=== PATIENT | male | born 1970 | race Caucasian/White ===

== ENCOUNTER 2016-09-14 03:27 | Emergency (ER) | payer BC ==
[2016-09-14] MEDS ORDERED: ACETAMINOPHEN TAB 650MG DOSE (2X325MG) As Ordered ONE (05:30)
[2016-09-14 05:58] LABS: BASO # 0.1 K/mm3 (0.0-0.2); BASO % 1.7 % (0.0-1.0); EOS # 0.1 K/mm3 (0.0-0.50); LARGE UNSTAINED CELL # 0.1 K/mm3 (0.0-0.4); LARGE UNSTAINED CELL % 1.8 % (0.0-4.0); LYMPH # 0.8 K/mm3 (1.5-4.5); LYMPH % 9.9 % (24.0-44.0); MEAN CORPUSCULAR HEMOGLOBIN 31.3 pg (27.0-33.0); MEAN CORPUSCULAR HGB CONC 36.1 g/dl (32.0-36.5); MEAN CORPUSCULAR VOLUME 86.8 fl (80.0-96.0); MONO # 0.6 K/mm3 (0.0-0.8); MONO % 9.6 % (0.0-5.0); NEUTROPHILS # 4.9 K/mm3 (1.8-7.7); NEUTROPHILS % 76.1 % (36.0-66.0); PLATELET COUNT, AUTOMATED 162 k/mm3 (150-450); RED CELL DISTRIBUTION WIDTH 13.8 % (11.5-14.5); WHITE BLOOD COUNT 6.5 K/mm3 (4.0-10.0)
[2016-09-14 06:18] LABS: ANION GAP 8 MEQ/L (8-16); BLOOD UREA NITROGEN 11 MG/DL (7-18); CALCIUM LEVEL 8.6 MG/DL (8.5-10.1); CARBON DIOXIDE LEVEL 26 MEQ/L (21-32); CHLORIDE LEVEL 104 MEQ/L (98-107); CREATININE FOR GFR 1.14 MG/DL (0.70-1.30); GLOMERULAR FILTRATION RATE > 60.0 (>60); GLUCOSE, FASTING 127 MG/DL (70-105); POTASSIUM SERUM 3.9 MEQ/L (3.5-5.1); SODIUM LEVEL 138 MEQ/L (136-145)
[2016-09-14] MEDS ORDERED: ISOVUE-370 76% 100ML VIAL (Q9967) As Ordered ONE (07:47)
--- NOTE | 2016-09-14 08:06 | REP ---
Clinical: acute cough . Comparison: 02/05/2016 . Technique: PA and lateral. Findings: The mediastinum and cardiac silhouette are normal. The lung spencer are clear and without acute consolidation, effusion, or pneumothorax. The skeletal structures are intact and normal. Impression: 1. No acute cardiopulmonary process. Signed by Marcus Su MD 09/14/2016 07:57 A
[2016-09-14] MEDS ORDERED: KETOROLAC 30 MG/ML VIAL (J1885) As Ordered ONE (08:11)
--- NOTE | 2016-09-14 08:16 | REP ---
Clinical: Acute chest pain. Technique: Axial contrast enhanced images from the thoracic inlet to the upper abdomen using 100 ml Isovue 370 intravenous contrast material with coronal and sagittal re-formations. Findings: Satisfactory enhancement of the pulmonary vasculature is achieved and no filling defects are identified to suggest pulmonary embolus. Trace right basilar atelectasis is suggested. No nodule or mass lesion. No pleural effusion/reaction. No pneumothorax. No adenopathy. Thoracic aorta is normal caliber without aneurysm or dissection. Heart and pericardium are normal. Impression: No evidence for pulmonary embolus. Trace right basilar atelectasis suggested. Signed by Marcus Su MD 09/14/2016 08:08 A
--- NOTE | 2016-09-14 10:50 | EDDOCDS ---
Nurse's Notes [facility] Name: Calvin Sims Age: 46 yrs Sex: Male : 1970 Arrival Date: 09/14/2016 Time: 03:27 Bed 17 Private MD: Diagnosis: Influenza due to identified novel influenza A virus Presentation: 09/14 03:31 Presenting complaint: Patient states: he has had URI symptoms and running fevers which cz he cant get under control at home with tylenol. pt states he was on antibiotic for white spots on tonsils which resloved but now has returned. pt states history of pneumonia one year ago. Adult Sepsis Screening: The patient does not have new or worsening altered mentation. Patient's respiratory rate is less than 22. Systolic blood pressure is greater than 100. Patient has a qSOFA score of 0- Negative Sepsis Screen. Suicide/Homicide risk assessment- the patient denies having any suicidal and/or homicidal ideations and does not present with any other emotional, behavioral or mental health complaints. Status: Patient is not a customer service security officer or dependent. Transition of care: patient was not received from another setting of care. 03:31 Acuity: DEVAUGHN Level 3 cz 03:31 Method Of Arrival: Walkin/Carried/Asstd cz Triage Assessment: 03:38 General: Appears uncomfortable. Pain: Location: face Pain currently is 7 out of 10 on a cz pain scale. HIV screening NA for this visit Offered previously. 06:21 Respiratory: Onset: The symptoms/episode began/occurred gradually. ko2 Historical: - Allergies: No known drug Allergies; - Home Meds: 1. amlodipine 5 mg Oral tab 2. atorvastatin 10 mg oral tab 1 tab once daily 3. losartan 100 mg oral tab 1 tab once daily 4. omeprazole 40 mg Oral cpDR 1 cap once daily 5. metformin 500 mg Oral Tb24 1 tab once daily - PMHx: Diabetes - NIDDM: controlled; Hypertension; hyperlipidemia; - PSHx: Cholecystectomy; Appendectomy; Hernia repair; - Social history: Smoking status: Patient states was never smoker of tobacco. No barriers to communication noted, The patient speaks fluent Mongolian, Speaks appropriately for age. - Family history: Not pertinent, No immediate family members are acutely ill. - : The pt / caregiver states he / she is not on anticoagulants. Home medication list is obtained from the patient. - Exposure Risk Screening:: None identified. Screenin:20 Screening information is obtained from the patient. Fall risk: No risks identified. ko2 Assistance ADL's: requires no assistance with activities of daily living. Abuse/DV Screen: The patient / caregiver reports he/she is: not in a situation that causes fear, pain or injury. Nutritional screening: No deficits noted. Advance Directives: Currently, there is no health care proxy. There is no active DNR order. There is no living will. There is no Power of Reheater Helper. home support is adequate. Assessment: 05:26 General: Appears in no apparent distress, Behavior is cooperative. Pain: Denies pain. mlc Neurological: Level of Consciousness is awake, alert, Oriented to person, place, time. EENT: Throat has patchy exudate. Cardiovascular: Capillary refill < 3 seconds Heart tones S1 S2 present. Cardiovascular: Chest pain is denied. Respiratory: Airway is patent Respiratory effort is even, unlabored, Respiratory pattern is regular, Breath sounds are clear bilaterally. Reports shortness of breath cough that is non-productive. Derm: Skin is pink, warm & dry. Skin temperature is warm. 06:19 General: Appears in no apparent distress, Behavior is appropriate for age, cooperative. ko2 Pain: Denies pain. Neurological: Level of Consciousness is awake, alert, Oriented to person, place, time. Cardiovascular: Heart tones S1 S2 present. Respiratory: Airway is patent Respiratory effort is even, unlabored, Respiratory pattern is regular. Derm: Skin is pink, warm & dry. 07:07 General: Appears in no apparent distress, Behavior is appropriate for age, cooperative. pml Pain: Location: body aches. Neurological: Level of Consciousness is awake, alert, Oriented to person, place, time. Cardiovascular: Capillary refill < 3 seconds. Respiratory: Airway is patent Respiratory effort is even, unlabored. Derm: Skin is pink, warm & dry. 08:13 General: Pt reports body aches, 7/10 - medicated as indicated on emar. pml 10:12 General: Appears in no apparent distress, comfortable, Behavior is appropriate for age, js13 cooperative. Pain: Location: body aches Pain currently is 4 out of 10 on a pain scale. Neurological: Level of Consciousness is awake, alert. Cardiovascular: Chest pain is denied. Respiratory: Airway is patent Respiratory effort is even, unlabored, Respiratory pattern is regular, symmetrical. Derm: Skin is pink, warm & dry. Vital Signs: 03:38 BP 152 / 82; Pulse 103; Resp 16; Temp 101.4(O); Pulse Ox 96% on R/A; Weight 117.93 kg; cz Height 6 ft. (182.88 cm); 07:07 Temp 100.3; pml 08:28 Pain 5/10; pml 10:14 Pain 4/10; js13 10:48 BP 116 / 66; Pulse 60; Resp 16; Temp 98.3(O); Pain 0/10; kr3 03:38 Body Mass Index 35.26 (117.93 kg, 182.88 cm) cz Vitals: 03:38 Log In Time: September 14, 2016 at 03:27. cz 05:52 Strep Screen is obtained and tested: Negative, a GATSNEG culture is ordered in [facility] and sent. ED Course: 03:28 Patient visited by Shantell Kohli. gjb 03:28 Patient moved to Waiting gjb 03:36 Triage Initiated cz 03:42 Patient moved to Pre RCE cz 05:03 Patient moved to Jul 05:11 Patient visited by Jerod Feliciano PCA. kb5 05:52 Gianna Boyer,RN is Primary Nurse. jul 05:52 Patient moved to 17 jul 05:52 The patient / caregiver is instructed regarding the plan of care and ED course. mlc 05:52 GATS (NEGATIVE STREP SCREEN) Sent. mlc 05:52 -Influenza A&B Rapid Antigen - Nose Sent. mlc 05:52 BMP Sent. mlc 05:52 CBC with Diff Sent. mlc 05:52 Inserted saline lock: 18 gauge in right antecubital area and blood collected. The [facility] [place] patient tolerated the procedure well. 05:53 Patient visited by Ariana Ash RN. mlc 05:56 BLOOD CULTURES Sent. jerome 06:19 Patient visited by Gianna Boyer,TINY. ko2 06:49 [facility] [place] was scanned into [employer] and attached to record. pm4 07:04 Arlene Bragg MD is Attending Physician. fg 07:04 Patient visited by Arlene Bragg MD. fg 07:07 Patient has correct armband on for positive identification. Placed in gown. Bed in low pml position. Call light in reach. Side rails up X2. 07:08 Patient visited by Emilie Pinedo RN. pml 07:44 Patient visited by Tahira Moy PCA. jlf 08:14 Patient visited by Emilie Pinedo RN. pml 08:39 Chest, 2 View (pa\E\lat) Returned. EDMS 08:39 CT Chest Angio R/O PE Returned. EDMS 09:05 RESPIRATORY PANEL Sent. pml 10:13 Patient visited by Soni Barr RN. js13 10:23 Jean Carlos Somers is Referral Physician. fg 10:47 Discontinued lock intact, bleeding controlled, pressure dressing applied, No kr3 redness/swelling at site. No procedures done that require assistance. Administered Medications: 05:29 Not Given (Patient Refused): Ibuprofen 800 mg PO once jul 05:52 Drug: NS 0.9% 1000 ml [sodium chloride 0.9 % intravenous solution] Route: IV; Rate: mlc bolus; Site: right antecubital; 05:52 Drug: Acetaminophen 650 mg [acetaminophen 325 mg tablet (2 tabs)] Route: PO; mlc 07:10 Follow up: Response: Temperature is decreased pml 08:14 Drug: ketorolac 15 mg [ketorolac 30 mg/mL (1 mL) injection solution (0.5 mL)] Route: [facility] IVP; Site: right antecubital; 08:28 Follow up: Pain 5/10 Adult; Response: Pain is decreased pml 10:14 Follow up: Pain 4/10 Adult; Response: Pain is decreased js13 Order Results: Lab Order: CBC with Diff; SPEC'M 09/14/16 05:45 Test: WHITE BLOOD COUNT; Value: 6.5; Range: 4.0-10.0; Units: K/mm3; Status: F Test: RED BLOOD COUNT; Value: 5.47; Range: 4.30-6.10; Units: M/mm3; Status: F Test: HEMOGLOBIN; Value: 17.1; Range: 14.0-18.0; Units: g/dl; Status: F Test: HEMATOCRIT; Value: 47.5; Range: 42.0-52.0; Units: %; Status: F Test: MEAN CORPUSCULAR VOLUME; Value: 86.8; Range: 80.0-96.0; Units: fl; Status: F Test: MEAN CORPUSCULAR HEMOGLOBIN; Value: 31.3; Range: 27.0-33.0; Units: pg; Status: F Test: MEAN CORPUSCULAR HGB CONC; Value: 36.1; Range: 32.0-36.5; Units: g/dl; Status: F Test: RED CELL DISTRIBUTION WIDTH; Value: 13.8; Range: 11.5-14.5; Units: %; Status: F Test: PLATELET COUNT, AUTOMATED; Value: 162; Range: 150-450; Units: k/mm3; Status: F Test: NEUTROPHILS %; Value: 76.1; Range: 36.0-66.0; Abnormal: Above high normal; Units: %; Status: F Test: LYMPH %; Value: 9.9; Range: 24.0-44.0; Abnormal: Below low normal; Units: %; Status: F Test: MONO %; Value: 9.6; Range: 0.0-5.0; Abnormal: Above high normal; Units: %; Status: F Test: EOS %; Value: 1.0; Range: 0.0-3.0; Units: %; Status: F Test: BASO %; Value: 1.7; Range: 0.0-1.0; Abnormal: Above high normal; Units: %; Status: F Test: LARGE UNSTAINED CELL %; Value: 1.8; Range: 0.0-4.0; Units: %; Status: F Test: NEUTROPHILS #; Value: 4.9; Range: 1.8-7.7; Units: K/mm3; Status: F Test: LYMPH #; Value: 0.8; Range: 1.5-4.5; Abnormal: Below low normal; Units: K/mm3; Status: F Test: MONO #; Value: 0.6; Range: 0.0-0.8; Units: K/mm3; Status: F Test: EOS #; Value: 0.1; Range: 0.0-0.50; Units: K/mm3; Status: F Test: BASO #; Value: 0.1; Range: 0.0-0.2; Units: K/mm3; Status: F Test: LARGE UNSTAINED CELL #; Value: 0.1; Range: 0.0-0.4; Units: K/mm3; Status: F Lab Order: BMP; SPEC'M 09/14/16 05:45 Test: GLUCOSE, FASTING; Value: 127; Range: 70-105; Abnormal: Above high normal; Units: MG/DL; Status: F Test: BLOOD UREA NITROGEN; Value: 11; Range: 7-18; Units: MG/DL; Status: F Test: CREATININE FOR GFR; Value: 1.14; Range: 0.70-1.30; Units: MG/DL; Status: F Test: GLOMERULAR FILTRATION RATE; Value: > 60.0; Range: >60; Status: F Test: SODIUM LEVEL; Value: 138; Range: 136-145; Units: MEQ/L; Status: F Test: POTASSIUM SERUM; Value: 3.9; Range: 3.5-5.1; Units: MEQ/L; Status: F Test: CHLORIDE LEVEL; Value: 104; Range: 98-107; Units: MEQ/L; Status: F Test: CARBON DIOXIDE LEVEL; Value: 26; Range: 21-32; Units: MEQ/L; Status: F Test: ANION GAP; Value: 8; Range: 8-16; Units: MEQ/L; Status: F Test: CALCIUM LEVEL; Value: 8.6; Range: 8.5-10.1; Units: MG/DL; Status: F Test Note: ; Units are mL/min/1.73 m2 Chronic Kidney Disease Staging per NKF: Stage I & II GFR >=60 Normal to Mildly Decreased Stage III GFR 30-59 Moderately Decreased Stage IV GFR 15-29 Severely Decreased Stage V GFR <15 Very Little GFR Left ESRD GFR <15 on SUPERVIS[employer] Lab Order: -Influenza A&B Rapid Antigen - Nose; SPEC'M 09/14/16 05:45 Test: INFLUENZA A RAPID SCR by ICA; Value: INFLUENZA A RESULTS NEGATIVE; Status: F Test: INFLUENZA A RAPID SCR by ICA; Value: Comments:; Status: F Test: INFLUENZA B RAPID SCR by ICA; Value: INFLUENZA B RESULTS NEGATIVE; Status: F Test Note: ; The Influenza test is a direct rapid immunoassay for the qualitative detection of Influenza viral antigen. Cell culture (Viral Culture) testing should be considered to confirm NEGATIVE results and to assist in detecting other viruses that can provide similar clinical symptoms. Please contact the lab within 24 hours ([phone]) if confirmatory testing is desired. Lab Order: RESPIRATORY PANEL; SPEC'M 09/14/16 05:45 Test: RESPIRATORY PANEL; Value: RP PANEL RESULT POSITIVE by PCR; Abnormal: Abnormal; Status: F Test: RESPIRATORY PANEL; Value: Comments:; Status: F Test: RESPIRATORY PANEL; Value: ORGANISM 1: INFLUENZA A H3; Status: F Test: RESPIRATORY PANEL; Value: INFLUENZA A H3; Status: F Test: RESPIRATORY PANEL; Value: Influenza H3 1 Influenza causes upper respiratory tract infections; Status: F Test: RESPIRATORY PANEL; Value: Influenza H3 10 Influenza A1H3.; Status: F Test: RESPIRATORY PANEL; Value: Influenza H3 2 with rapid onset of fever. During annual Influenza; Status: F Test: RESPIRATORY PANEL; Value: Influenza H3 3 epidemics, 5-20% of the population is affected.; Status: F Test: RESPIRATORY PANEL; Value: Influenza H3 4 Complications with viral or bacterial pneumonia; Status: F Test: RESPIRATORY PANEL; Value: Influenza H3 5 increase mortality from Influenza infections. There; Status: F Test: RESPIRATORY PANEL; Value: Influenza H3 6 are currently at least four antiviral medications; Status: F Test: RESPIRATORY PANEL; Value: Influenza H3 7 available for Influenza treatment (amantadine,; Status: F Test: RESPIRATORY PANEL; Value: Influenza H3 8 rimantadine, zanamivir and oseltamivir). More severe; Status: F Test: RESPIRATORY PANEL; Value: Influenza H3 9 disease and increased mortality are associated with; Status: F Test Note: ; This respiratory PCR panel detects Influenza A H1, H3 and 2009 H1 viruses, Influenza B virus, Respiratory syncytial virus, Human metapneumovirus, Parainfluenza virus 1, 2, 3 and 4, Adenovirus, Rhinovirus/Enterovirus, Coronavirus HKU1, NL63, OC43 and 229E, Bordetella pertussis, Mycoplasma pneumoniae and Chlamydia pneumoniae. Radiology Order: Chest, 2 View (pa\E\lat) Test: Chest, 2 View (pa\E\lat) REASON FOR EXAMINATION: Cough;Chest Pain; Clinical: acute cough .; ; Comparison: 02/05/2016 .; ; Technique: PA and lateral.; ; Findings:; The mediastinum and cardiac silhouette are normal. The lung spencer are clear and; without acute consolidation, effusion, or pneumothorax. The skeletal structures; are intact and normal.; ; Impression:; 1. No acute cardiopulmonary process.; ; ; Signed by; Marcus Su MD 09/14/2016 07:57 A; Radiology Order: CT Chest Angio R/O PE Test: CT Chest Angio R/O PE REASON FOR EXAMINATION: Chest Pain;Cough; Clinical: Acute chest pain.; ; Technique: Axial contrast enhanced images from the thoracic inlet to the upper; abdomen using 100 ml Isovue 370 intravenous contrast material with coronal and; sagittal re-formations.; ; Findings: Satisfactory enhancement of the pulmonary vasculature is achieved and; no filling defects are identified to suggest pulmonary embolus. Trace right; basilar atelectasis is suggested. No nodule or mass lesion. No pleural; effusion/reaction. No pneumothorax. No adenopathy. Thoracic aorta is normal; caliber without aneurysm or dissection. Heart and pericardium are normal.; ; Impression:; No evidence for pulmonary embolus.; Trace right basilar atelectasis suggested.; ; ; Signed by; Marcus Su MD 09/14/2016 08:08 A; Outcome: 10:25 Discharge ordered by Provider. fg 10:47 CT Study completed. kr3 10:49 Discharge Assessment: patient administered narcotics - no. The following High Risk kr3 Discharge criteria are identified: None. Discharged to home ambulatory. Condition: stable. Discharge instructions given to patient, Instructed on discharge instructions, follow up and referral plans. Demonstrated understanding of instructions, Pt was receptive of discharge instructions/ teaching. Property sent home with patient. 10:49 Patient left the ED. kr3 Signatures: Dispatcher [employer] EDMS Gypsy Pa RN RN jan Zecher, Calvin, RN RN cz Robie, Kathleen, RN RN kr3 Bancroft, Kristopher, RIVERINE ASSAULT CRAFT CREWMAN RIVERINE ASSAULT CRAFT CREWMAN kb5 Sayra Pierce, RIVERINE ASSAULT CRAFT CREWMAN RIVERINE ASSAULT CRAFT CREWMAN Emilie Hamilton,RN Soni DeyRN RN grant13 Tahira Moy, RIVERINE ASSAULT CRAFT CREWMAN RIVERINE ASSAULT CRAFT CREWMAN Ariana Ashraf RN RN mlc Ogden, Kari, RN RN Arlene Perez MD MD fg Beck, Gabriela gjb Montondo, Paul, Reg Reg pm4 MTDD
--- NOTE | 2016-09-14 10:50 | EDDOCDS ---
Physician Documentation [facility] Name: Calvin Sims Age: 46 yrs Sex: Male : 1970 Arrival Date: 09/14/2016 Time: 03:27 Bed 17 Private MD: Disposition: 09/14/16 10:25 Discharged to Home/Self Care. Impression: Influenza due to identified novel influenza A virus. - Condition is Stable. - Discharge Instructions: Influenza Adult. - Medication Reconciliation, Local Pharmacy Hours form. - Follow up: Jean Carlos Somers; When: Call to arrange an appointment; Reason: Continuance of care. - Problem is new. - Symptoms have improved. Historical: - Allergies: No known drug Allergies; - Home Meds: 1. amlodipine 5 mg Oral tab 2. atorvastatin 10 mg oral tab 1 tab once daily 3. losartan 100 mg oral tab 1 tab once daily 4. omeprazole 40 mg Oral cpDR 1 cap once daily 5. metformin 500 mg Oral Tb24 1 tab once daily - PMHx: Diabetes - NIDDM: controlled; Hypertension; hyperlipidemia; - PSHx: Cholecystectomy; Appendectomy; Hernia repair; - Social history: Smoking status: Patient states was never smoker of tobacco. No barriers to communication noted, The patient speaks fluent Turkish, Speaks appropriately for age. - Family history: Not pertinent, No immediate family members are acutely ill. - : The pt / caregiver states he / she is not on anticoagulants. Home medication list is obtained from the patient. - Exposure Risk Screening:: None identified. Vital Signs: 09/14 03:38 BP 152 / 82; Pulse 103; Resp 16; Temp 101.4(O); Pulse Ox 96% on R/A; Weight 117.93 kg / cz 259.99 lbs; Height 6 ft. (182.88 cm); 07:07 Temp 100.3; pml 08:28 Pain 5/10; pml 10:14 Pain 4/10; js13 10:48 BP 116 / 66; Pulse 60; Resp 16; Temp 98.3(O); Pain 0/10; kr3 03:38 Body Mass Index 35.26 (117.93 kg, 182.88 cm) cz MDM: 05:25 IV Saline Lock ordered. mm11 05:25 Strep Screen, Nursing ordered. mm11 05:25 Ibuprofen 800 mg PO once ordered. mm11 05:25 NS 0.9% 1000 ml IV at bolus once ordered. mm11 05:25 -Blood Culture (Adults Only), peripheral from different site, or from device/port/PICC mm11 etc. if present ordered. 05:26 CBC with Diff Ordered. EDMS 05:26 BMP Ordered. EDMS 05:26 -Influenza A&B Rapid Antigen - Nose Ordered. EDMS 05:27 -Blood Culture Ordered. EDMS 05:29 Acetaminophen Tablet 650 mg PO once ordered. mm11 05:29 -Blood Culture (Adults Only), peripheral from different site, or from device/port/PICC ml3 etc. if present complete. 05:31 BLOOD CULTURES Ordered. EDMS 05:51 GATS (NEGATIVE STREP SCREEN) Ordered. EDMS 06:49 [facility] Payment Agreement was scanned into [employer] and attached to record. pm4 07:06 Financial registration complete. pm4 07:40 ketorolac 15 mg IVP once ordered. fg 07:41 Chest, 2 View (pa\E\lat) Ordered. EDMS 07:41 CT Chest Angio R/O PE Ordered. EDMS 07:41 Misc Retail Area Manager Order ordered. fg 07:45 Misc Retail Area Manager Order complete. ar3 08:12 RESPIRATORY PANEL Ordered. EDMS Administered Medications: 05:29 Not Given (Patient Refused): Ibuprofen 800 mg PO once jul 05:52 Drug: NS 0.9% 1000 ml [sodium chloride 0.9 % intravenous solution] Route: IV; Rate: mlc bolus; Site: right antecubital; 05:52 Drug: Acetaminophen 650 mg [acetaminophen 325 mg tablet (2 tabs)] Route: PO; mlc 07:10 Follow up: Response: Temperature is decreased pml 08:14 Drug: ketorolac 15 mg [ketorolac 30 mg/mL (1 mL) injection solution (0.5 mL)] Route: pml IVP; Site: right antecubital; 08:28 Follow up: Pain 5/10 Adult; Response: Pain is decreased pml 10:14 Follow up: Pain 4/10 Adult; Response: Pain is decreased js13 Signatures: Dispatcher [employer] EDMS Devaughn Bueno RN RN cz Lopresti, Mary-Elizabeth, Jd [employer] Consultant [employer] ml3 Kristine Solitario RN RN kr3 Kayode Alcaraz, DO DO mm11 Nathalie Reyes, IT ENGINEER IT ENGINEER ar3 Ariana Ash,RN RN mlc Arlene Bragg MD MD Kvng Marroquin, Reg Reg pm4 Gypsy Pa RN, Paulina RN pml Sullivan, Jennifer RN js13 The chart was reviewed and I authenticate all verbal orders and agree with the evaluation and treatment provided.Corrections: (The following items were deleted from the chart) 08:12 07:46 RESPIRATORY PANEL ordered. EDMS EDMS Attachments: 06:49 [facility] [place] Payment Agreement pm4 MTDD
--- NOTE | 2016-09-16 11:50 | EDDOCDS ---
Physician Documentation [facility] Name: Calvin Sims Age: 46 yrs Sex: Male : 1970 Arrival Date: 09/14/2016 Time: 03:27 Bed 17 Private MD: Disposition: 09/14/16 10:25 Discharged to Home/Self Care. Impression: Influenza due to identified novel influenza A virus. - Condition is Stable. - Discharge Instructions: Influenza Adult. - Medication Reconciliation, Local Pharmacy Hours form. - Follow up: Jean Carlos Somers; When: Call to arrange an appointment; Reason: Continuance of care. - Problem is new. - Symptoms have improved. Historical: - Allergies: No known drug Allergies; - Home Meds: 1. amlodipine 5 mg Oral tab 2. atorvastatin 10 mg oral tab 1 tab once daily 3. losartan 100 mg oral tab 1 tab once daily 4. omeprazole 40 mg Oral cpDR 1 cap once daily 5. metformin 500 mg Oral Tb24 1 tab once daily - PMHx: Diabetes - NIDDM: controlled; Hypertension; hyperlipidemia; - PSHx: Cholecystectomy; Appendectomy; Hernia repair; - Social history: Smoking status: Patient states was never smoker of tobacco. No barriers to communication noted, The patient speaks fluent Latvian, Speaks appropriately for age. - Family history: Not pertinent, No immediate family members are acutely ill. - : The pt / caregiver states he / she is not on anticoagulants. Home medication list is obtained from the patient. - Exposure Risk Screening:: None identified. Vital Signs: 09/14 03:38 BP 152 / 82; Pulse 103; Resp 16; Temp 101.4(O); Pulse Ox 96% on R/A; Weight 117.93 kg / cz 259.99 lbs; Height 6 ft. (182.88 cm); 07:07 Temp 100.3; pml 08:28 Pain 5/10; pml 10:14 Pain 4/10; js13 10:48 BP 116 / 66; Pulse 60; Resp 16; Temp 98.3(O); Pain 0/10; kr3 03:38 Body Mass Index 35.26 (117.93 kg, 182.88 cm) cz MDM: 05:25 IV Saline Lock ordered. mm11 05:25 Strep Screen, Nursing ordered. mm11 05:25 Ibuprofen 800 mg PO once ordered. mm11 05:25 NS 0.9% 1000 ml IV at bolus once ordered. mm11 05:25 -Blood Culture (Adults Only), peripheral from different site, or from device/port/PICC mm11 etc. if present ordered. 05:26 CBC with Diff Ordered. EDMS 05:26 BMP Ordered. EDMS 05:26 -Influenza A&B Rapid Antigen - Nose Ordered. EDMS 05:27 -Blood Culture Ordered. EDMS 05:29 Acetaminophen Tablet 650 mg PO once ordered. mm11 05:29 -Blood Culture (Adults Only), peripheral from different site, or from device/port/PICC ml3 etc. if present complete. 05:31 BLOOD CULTURES Ordered. EDMS 05:51 GATS (NEGATIVE STREP SCREEN) Ordered. EDMS 06:49 [facility] Payment Agreement was scanned into OPENLANE and attached to record. pm4 07:06 Financial registration complete. pm4 07:40 ketorolac 15 mg IVP once ordered. fg 07:41 Chest, 2 View (pa\E\lat) Ordered. EDMS 07:41 CT Chest Angio R/O PE Ordered. EDMS 07:41 Misc Chief Creative Officer Order ordered. fg 07:45 Misc Chief Creative Officer Order complete. ar3 08:12 RESPIRATORY PANEL Ordered. EDMS 17:23 T-Sheet-- Draft Copy was scanned into OPENLANE and attached to record. klr Administered Medications: 05:29 Not Given (Patient Refused): Ibuprofen 800 mg PO once jul 05:52 Drug: NS 0.9% 1000 ml [sodium chloride 0.9 % intravenous solution] Route: IV; Rate: mlc bolus; Site: right antecubital; 05:52 Drug: Acetaminophen 650 mg [acetaminophen 325 mg tablet (2 tabs)] Route: PO; mlc 07:10 Follow up: Response: Temperature is decreased pml 08:14 Drug: ketorolac 15 mg [ketorolac 30 mg/mL (1 mL) injection solution (0.5 mL)] Route: pml IVP; Site: right antecubital; 08:28 Follow up: Pain 5/10 Adult; Response: Pain is decreased pml 10:14 Follow up: Pain 4/10 Adult; Response: Pain is decreased js13 Signatures: Dispatcher MedHost EDMS Devaughn Bueno RN RN Juanpablo Gifford, Automatic Nailing Machine Feeder Unit ml3 Kristine Solitario,RN RN kr3 Kayode Alcaraz, DO mm11 Nathalie Reyes, LABOR TRAINER LABOR TRAINER ar3 Ariana Ash,RN RN Arlene Palomares MD MD fg Redder, Kathie klr Montondo, Paul, Reg Reg pm4 Gypsy Pa RN, Paulina RN pml Sullivan, Jennifer RN js13 The chart was reviewed and I authenticate all verbal orders and agree with the evaluation and treatment provided.Corrections: (The following items were deleted from the chart) 08:12 07:46 RESPIRATORY PANEL ordered. EDMS EDMS Attachments: 06:49 MD-EM Payment Agreement pm4 17:23 T-Sheet-- Draft Copy klr Chart Complete MTDD
--- NOTE | 2016-09-16 11:50 | EDDOCDS ---
Nurse's Notes [facility] Name: Calvin Sims Age: 46 yrs Sex: Male : 1970 Arrival Date: 09/14/2016 Time: 03:27 Bed 17 Private MD: Diagnosis: Influenza due to identified novel influenza A virus Presentation: 09/14 03:31 Presenting complaint: Patient states: he has had URI symptoms and running fevers which cz he cant get under control at home with tylenol. pt states he was on antibiotic for white spots on tonsils which resloved but now has returned. pt states history of pneumonia one year ago. Adult Sepsis Screening: The patient does not have new or worsening altered mentation. Patient's respiratory rate is less than 22. Systolic blood pressure is greater than 100. Patient has a qSOFA score of 0- Negative Sepsis Screen. Suicide/Homicide risk assessment- the patient denies having any suicidal and/or homicidal ideations and does not present with any other emotional, behavioral or mental health complaints. Status: Patient is not a health services rn or dependent. Transition of care: patient was not received from another setting of care. 03:31 Acuity: DEVAUGHN Level 3 cz 03:31 Method Of Arrival: Walkin/Carried/Asstd cz Triage Assessment: 03:38 General: Appears uncomfortable. Pain: Location: face Pain currently is 7 out of 10 on a cz pain scale. HIV screening NA for this visit Offered previously. 06:21 Respiratory: Onset: The symptoms/episode began/occurred gradually. ko2 Historical: - Allergies: No known drug Allergies; - Home Meds: 1. amlodipine 5 mg Oral tab 2. atorvastatin 10 mg oral tab 1 tab once daily 3. losartan 100 mg oral tab 1 tab once daily 4. omeprazole 40 mg Oral cpDR 1 cap once daily 5. metformin 500 mg Oral Tb24 1 tab once daily - PMHx: Diabetes - NIDDM: controlled; Hypertension; hyperlipidemia; - PSHx: Cholecystectomy; Appendectomy; Hernia repair; - Social history: Smoking status: Patient states was never smoker of tobacco. No barriers to communication noted, The patient speaks fluent Guamanian, Speaks appropriately for age. - Family history: Not pertinent, No immediate family members are acutely ill. - : The pt / caregiver states he / she is not on anticoagulants. Home medication list is obtained from the patient. - Exposure Risk Screening:: None identified. Screenin:20 Screening information is obtained from the patient. Fall risk: No risks identified. ko2 Assistance ADL's: requires no assistance with activities of daily living. Abuse/DV Screen: The patient / caregiver reports he/she is: not in a situation that causes fear, pain or injury. Nutritional screening: No deficits noted. Advance Directives: Currently, there is no health care proxy. There is no active DNR order. There is no living will. There is no Power of Pharmaceutical Analyst. home support is adequate. Assessment: 05:26 General: Appears in no apparent distress, Behavior is cooperative. Pain: Denies pain. mlc Neurological: Level of Consciousness is awake, alert, Oriented to person, place, time. EENT: Throat has patchy exudate. Cardiovascular: Capillary refill < 3 seconds Heart tones S1 S2 present. Cardiovascular: Chest pain is denied. Respiratory: Airway is patent Respiratory effort is even, unlabored, Respiratory pattern is regular, Breath sounds are clear bilaterally. Reports shortness of breath cough that is non-productive. Derm: Skin is pink, warm & dry. Skin temperature is warm. 06:19 General: Appears in no apparent distress, Behavior is appropriate for age, cooperative. ko2 Pain: Denies pain. Neurological: Level of Consciousness is awake, alert, Oriented to person, place, time. Cardiovascular: Heart tones S1 S2 present. Respiratory: Airway is patent Respiratory effort is even, unlabored, Respiratory pattern is regular. Derm: Skin is pink, warm & dry. 07:07 General: Appears in no apparent distress, Behavior is appropriate for age, cooperative. pml Pain: Location: body aches. Neurological: Level of Consciousness is awake, alert, Oriented to person, place, time. Cardiovascular: Capillary refill < 3 seconds. Respiratory: Airway is patent Respiratory effort is even, unlabored. Derm: Skin is pink, warm & dry. 08:13 General: Pt reports body aches, 7/10 - medicated as indicated on emar. pml 10:12 General: Appears in no apparent distress, comfortable, Behavior is appropriate for age, js13 cooperative. Pain: Location: body aches Pain currently is 4 out of 10 on a pain scale. Neurological: Level of Consciousness is awake, alert. Cardiovascular: Chest pain is denied. Respiratory: Airway is patent Respiratory effort is even, unlabored, Respiratory pattern is regular, symmetrical. Derm: Skin is pink, warm & dry. Vital Signs: 03:38 BP 152 / 82; Pulse 103; Resp 16; Temp 101.4(O); Pulse Ox 96% on R/A; Weight 117.93 kg; cz Height 6 ft. (182.88 cm); 07:07 Temp 100.3; pml 08:28 Pain 5/10; pml 10:14 Pain 4/10; js13 10:48 BP 116 / 66; Pulse 60; Resp 16; Temp 98.3(O); Pain 0/10; kr3 03:38 Body Mass Index 35.26 (117.93 kg, 182.88 cm) cz Vitals: 03:38 Log In Time: September 14, 2016 at 03:27. cz 05:52 Strep Screen is obtained and tested: Negative, a GATSNEG culture is ordered in [facility] and sent. ED Course: 03:28 Patient visited by Shantell Kohli. gjb 03:28 Patient moved to Waiting gjb 03:36 Triage Initiated cz 03:42 Patient moved to Pre RCE cz 05:03 Patient moved to Jul 05:11 Patient visited by Jerod Feliciano PCA. kb5 05:52 Gianna Boyer,RN is Primary Nurse. jul 05:52 Patient moved to 17 jul 05:52 The patient / caregiver is instructed regarding the plan of care and ED course. mlc 05:52 GATS (NEGATIVE STREP SCREEN) Sent. mlc 05:52 -Influenza A&B Rapid Antigen - Nose Sent. mlc 05:52 BMP Sent. mlc 05:52 CBC with Diff Sent. mlc 05:52 Inserted saline lock: 18 gauge in right antecubital area and blood collected. The [facility] patient tolerated the procedure well. 05:53 Patient visited by Ariana Ash RN. mlc 05:56 BLOOD CULTURES Sent. jerome 06:19 Patient visited by Gianna Boyer,TINY. ko2 06:49 [facility] Payment Agreement was scanned into Swift Identity and attached to record. pm4 07:04 Arlene Bragg MD is Attending Physician. fg 07:04 Patient visited by Arlene Bragg MD. fg 07:07 Patient has correct armband on for positive identification. Placed in gown. Bed in low pml position. Call light in reach. Side rails up X2. 07:08 Patient visited by Emilie Pinedo RN. pml 07:44 Patient visited by Tahira Moy PCA. jlf 08:14 Patient visited by Emilie Pinedo RN. pml 08:39 Chest, 2 View (pa\E\lat) Returned. EDMS 08:39 CT Chest Angio R/O PE Returned. EDMS 09:05 RESPIRATORY PANEL Sent. pml 10:13 Patient visited by Soni Barr RN. js13 10:23 Jean Carlos Somers is Referral Physician. fg 10:47 Discontinued lock intact, bleeding controlled, pressure dressing applied, No kr3 redness/swelling at site. No procedures done that require assistance. 17:23 T-Sheet-- Draft Copy was scanned into Swift Identity and attached to record. klr Administered Medications: 05:29 Not Given (Patient Refused): Ibuprofen 800 mg PO once jul 05:52 Drug: NS 0.9% 1000 ml [sodium chloride 0.9 % intravenous solution] Route: IV; Rate: mlc bolus; Site: right antecubital; 05:52 Drug: Acetaminophen 650 mg [acetaminophen 325 mg tablet (2 tabs)] Route: PO; mlc 07:10 Follow up: Response: Temperature is decreased pml 08:14 Drug: ketorolac 15 mg [ketorolac 30 mg/mL (1 mL) injection solution (0.5 mL)] Route: pml IVP; Site: right antecubital; 08:28 Follow up: Pain 5/10 Adult; Response: Pain is decreased pml 10:14 Follow up: Pain 4/10 Adult; Response: Pain is decreased js13 Order Results: Lab Order: CBC with Diff; SPEC'M 09/14/16 05:45 Test: WHITE BLOOD COUNT; Value: 6.5; Range: 4.0-10.0; Units: K/mm3; Status: F Test: RED BLOOD COUNT; Value: 5.47; Range: 4.30-6.10; Units: M/mm3; Status: F Test: HEMOGLOBIN; Value: 17.1; Range: 14.0-18.0; Units: g/dl; Status: F Test: HEMATOCRIT; Value: 47.5; Range: 42.0-52.0; Units: %; Status: F Test: MEAN CORPUSCULAR VOLUME; Value: 86.8; Range: 80.0-96.0; Units: fl; Status: F Test: MEAN CORPUSCULAR HEMOGLOBIN; Value: 31.3; Range: 27.0-33.0; Units: pg; Status: F Test: MEAN CORPUSCULAR HGB CONC; Value: 36.1; Range: 32.0-36.5; Units: g/dl; Status: F Test: RED CELL DISTRIBUTION WIDTH; Value: 13.8; Range: 11.5-14.5; Units: %; Status: F Test: PLATELET COUNT, AUTOMATED; Value: 162; Range: 150-450; Units: k/mm3; Status: F Test: NEUTROPHILS %; Value: 76.1; Range: 36.0-66.0; Abnormal: Above high normal; Units: %; Status: F Test: LYMPH %; Value: 9.9; Range: 24.0-44.0; Abnormal: Below low normal; Units: %; Status: F Test: MONO %; Value: 9.6; Range: 0.0-5.0; Abnormal: Above high normal; Units: %; Status: F Test: EOS %; Value: 1.0; Range: 0.0-3.0; Units: %; Status: F Test: BASO %; Value: 1.7; Range: 0.0-1.0; Abnormal: Above high normal; Units: %; Status: F Test: LARGE UNSTAINED CELL %; Value: 1.8; Range: 0.0-4.0; Units: %; Status: F Test: NEUTROPHILS #; Value: 4.9; Range: 1.8-7.7; Units: K/mm3; Status: F Test: LYMPH #; Value: 0.8; Range: 1.5-4.5; Abnormal: Below low normal; Units: K/mm3; Status: F Test: MONO #; Value: 0.6; Range: 0.0-0.8; Units: K/mm3; Status: F Test: EOS #; Value: 0.1; Range: 0.0-0.50; Units: K/mm3; Status: F Test: BASO #; Value: 0.1; Range: 0.0-0.2; Units: K/mm3; Status: F Test: LARGE UNSTAINED CELL #; Value: 0.1; Range: 0.0-0.4; Units: K/mm3; Status: F Lab Order: BMP; SPEC'M 09/14/16 05:45 Test: GLUCOSE, FASTING; Value: 127; Range: 70-105; Abnormal: Above high normal; Units: MG/DL; Status: F Test: BLOOD UREA NITROGEN; Value: 11; Range: 7-18; Units: MG/DL; Status: F Test: CREATININE FOR GFR; Value: 1.14; Range: 0.70-1.30; Units: MG/DL; Status: F Test: GLOMERULAR FILTRATION RATE; Value: > 60.0; Range: >60; Status: F Test: SODIUM LEVEL; Value: 138; Range: 136-145; Units: MEQ/L; Status: F Test: POTASSIUM SERUM; Value: 3.9; Range: 3.5-5.1; Units: MEQ/L; Status: F Test: CHLORIDE LEVEL; Value: 104; Range: 98-107; Units: MEQ/L; Status: F Test: CARBON DIOXIDE LEVEL; Value: 26; Range: 21-32; Units: MEQ/L; Status: F Test: ANION GAP; Value: 8; Range: 8-16; Units: MEQ/L; Status: F Test: CALCIUM LEVEL; Value: 8.6; Range: 8.5-10.1; Units: MG/DL; Status: F Test Note: ; Units are mL/min/1.73 m2 Chronic Kidney Disease Staging per NKF: Stage I & II GFR >=60 Normal to Mildly Decreased Stage III GFR 30-59 Moderately Decreased Stage IV GFR 15-29 Severely Decreased Stage V GFR <15 Very Little GFR Left ESRD GFR <15 on COLLECTION SYSTEMS TECHNICIAN Lab Order: -Influenza A&B Rapid Antigen - Nose; SPEC'M 09/14/16 05:45 Test: INFLUENZA A RAPID SCR by ICA; Value: INFLUENZA A RESULTS NEGATIVE; Status: F Test: INFLUENZA A RAPID SCR by ICA; Value: Comments:; Status: F Test: INFLUENZA B RAPID SCR by ICA; Value: INFLUENZA B RESULTS NEGATIVE; Status: F Test Note: ; The Influenza test is a direct rapid immunoassay for the qualitative detection of Influenza viral antigen. Cell culture (Viral Culture) testing should be considered to confirm NEGATIVE results and to assist in detecting other viruses that can provide similar clinical symptoms. Please contact the lab within 24 hours ([phone]) if confirmatory testing is desired. Lab Order: -Blood Culture; SPEC'M 09/14/16 05:45 Test: BLOOD CULTURE; Value: No growth after 24 hours . All specimens observed; Status: F Test: BLOOD CULTURE; Value: for 5 days. Results final at that time.; Status: F Test: BLOOD CULTURE; Value: No Growth after 48 hours. All Specimens observed; Status: F Test: BLOOD CULTURE; Value: for 7 days. Results final at that time.; Status: F Lab Order: BLOOD CULTURES; SPEC'M 09/14/16 05:50 Test: BLOOD CULTURE; Value: No growth after 24 hours . All specimens observed; Status: F Test: BLOOD CULTURE; Value: for 5 days. Results final at that time.; Status: F Test: BLOOD CULTURE; Value: No Growth after 48 hours. All Specimens observed; Status: F Test: BLOOD CULTURE; Value: for 7 days. Results final at that time.; Status: F Lab Order: GATS (NEGATIVE STREP SCREEN); SPEC'M 09/14/16 05:50 Test: GATS CULTURE (NEG STREP SCR); Value: GATS RESULT NEGATIVE FOR STREP PYOGENES (GROUP A); Status: F Test: GATS CULTURE (NEG STREP SCR); Value: <EXTERNAL COMMENT eCWMed> FULL REPORT IN LAB NOTES (eCW and Medent).; Status: F Lab Order: RESPIRATORY PANEL; SPEC'M 09/14/16 05:45 Test: RESPIRATORY PANEL; Value: RP PANEL RESULT POSITIVE by PCR; Abnormal: Abnormal; Status: F Test: RESPIRATORY PANEL; Value: Comments:; Status: F Test: RESPIRATORY PANEL; Value: ORGANISM 1: INFLUENZA A H3; Status: F Test: RESPIRATORY PANEL; Value: INFLUENZA A H3; Status: F Test: RESPIRATORY PANEL; Value: Influenza H3 1 Influenza causes upper respiratory tract infections; Status: F Test: RESPIRATORY PANEL; Value: Influenza H3 10 Influenza A1H3.; Status: F Test: RESPIRATORY PANEL; Value: Influenza H3 2 with rapid onset of fever. During annual Influenza; Status: F Test: RESPIRATORY PANEL; Value: Influenza H3 3 epidemics, 5-20% of the population is affected.; Status: F Test: RESPIRATORY PANEL; Value: Influenza H3 4 Complications with viral or bacterial pneumonia; Status: F Test: RESPIRATORY PANEL; Value: Influenza H3 5 increase mortality from Influenza infections. There; Status: F Test: RESPIRATORY PANEL; Value: Influenza H3 6 are currently at least four antiviral medications; Status: F Test: RESPIRATORY PANEL; Value: Influenza H3 7 available for Influenza treatment (amantadine,; Status: F Test: RESPIRATORY PANEL; Value: Influenza H3 8 rimantadine, zanamivir and oseltamivir). More severe; Status: F Test: RESPIRATORY PANEL; Value: Influenza H3 9 disease and increased mortality are associated with; Status: F Test Note: ; This respiratory PCR panel detects Influenza A H1, H3 and 2009 H1 viruses, Influenza B virus, Respiratory syncytial virus, Human metapneumovirus, Parainfluenza virus 1, 2, 3 and 4, Adenovirus, Rhinovirus/Enterovirus, Coronavirus HKU1, NL63, OC43 and 229E, Bordetella pertussis, Mycoplasma pneumoniae and Chlamydia pneumoniae. Radiology Order: Chest, 2 View (pa\E\lat) Test: Chest, 2 View (pa\E\lat) REASON FOR EXAMINATION: Cough;Chest Pain; Clinical: acute cough .; ; Comparison: 02/05/2016 .; ; Technique: PA and lateral.; ; Findings:; The mediastinum and cardiac silhouette are normal. The lung spencer are clear and; without acute consolidation, effusion, or pneumothorax. The skeletal structures; are intact and normal.; ; Impression:; 1. No acute cardiopulmonary process.; ; ; Signed by; Marcus Su MD 09/14/2016 07:57 A; Radiology Order: CT Chest Angio R/O PE Test: CT Chest Angio R/O PE REASON FOR EXAMINATION: Chest Pain;Cough; Clinical: Acute chest pain.; ; Technique: Axial contrast enhanced images from the thoracic inlet to the upper; abdomen using 100 ml Isovue 370 intravenous contrast material with coronal and; sagittal re-formations.; ; Findings: Satisfactory enhancement of the pulmonary vasculature is achieved and; no filling defects are identified to suggest pulmonary embolus. Trace right; basilar atelectasis is suggested. No nodule or mass lesion. No pleural; effusion/reaction. No pneumothorax. No adenopathy. Thoracic aorta is normal; caliber without aneurysm or dissection. Heart and pericardium are normal.; ; Impression:; No evidence for pulmonary embolus.; Trace right basilar atelectasis suggested.; ; ; Signed by; Marcus Su MD 09/14/2016 08:08 A; Outcome: 10:25 Discharge ordered by Provider. fg 10:47 CT Study completed. kr3 10:49 Discharge Assessment: patient administered narcotics - no. The following High Risk kr3 Discharge criteria are identified: None. Discharged to home ambulatory. Condition: stable. Discharge instructions given to patient, Instructed on discharge instructions, follow up and referral plans. Demonstrated understanding of instructions, Pt was receptive of discharge instructions/ teaching. Property sent home with patient. 10:49 Patient left the ED. kr3 Signatures: Dispatcher [employer] EDMS Gypsy Pa, RN RN Devaughn Resendiz, RN RN Kristine Workman,RN RN [email or web address] Jerod Feliciano, OEM SALES MANAGER OEM SALES MANAGER kb5 Sayra Pierce, OEM SALES MANAGER OEM SALES MANAGER jerome Emilie Pinedo,RN RN Soni Scott,RN RN js13 Tahira Moy, OEM SALES MANAGER OEM SALES MANAGER jlf Ariana Ash,RN RN Gianna FoyRN RN ko2 Arlene Bragg MD MD fg Beck, Gabriela gjb Redder, Kathie klr Montondo, Paul, Reg Reg pm4 Chart Complete MTDHalina
--- NOTE | 2016-09-16 11:50 | EDDOCDS ---
Physician Documentation [facility] Name: Calvin Sims Age: 46 yrs Sex: Male : 1970 Arrival Date: 09/14/2016 Time: 03:27 Bed 17 Private MD: Disposition: 09/14/16 10:25 Discharged to Home/Self Care. Impression: Influenza due to identified novel influenza A virus. - Condition is Stable. - Discharge Instructions: Influenza Adult. - Medication Reconciliation, Local Pharmacy Hours form. - Follow up: Jean Carlos Somers; When: Call to arrange an appointment; Reason: Continuance of care. - Problem is new. - Symptoms have improved. Historical: - Allergies: No known drug Allergies; - Home Meds: 1. amlodipine 5 mg Oral tab 2. atorvastatin 10 mg oral tab 1 tab once daily 3. losartan 100 mg oral tab 1 tab once daily 4. omeprazole 40 mg Oral cpDR 1 cap once daily 5. metformin 500 mg Oral Tb24 1 tab once daily - PMHx: Diabetes - NIDDM: controlled; Hypertension; hyperlipidemia; - PSHx: Cholecystectomy; Appendectomy; Hernia repair; - Social history: Smoking status: Patient states was never smoker of tobacco. No barriers to communication noted, The patient speaks fluent Romansh, Speaks appropriately for age. - Family history: Not pertinent, No immediate family members are acutely ill. - : The pt / caregiver states he / she is not on anticoagulants. Home medication list is obtained from the patient. - Exposure Risk Screening:: None identified. Vital Signs: 09/14 03:38 BP 152 / 82; Pulse 103; Resp 16; Temp 101.4(O); Pulse Ox 96% on R/A; Weight 117.93 kg / cz 259.99 lbs; Height 6 ft. (182.88 cm); 07:07 Temp 100.3; pml 08:28 Pain 5/10; pml 10:14 Pain 4/10; js13 10:48 BP 116 / 66; Pulse 60; Resp 16; Temp 98.3(O); Pain 0/10; kr3 03:38 Body Mass Index 35.26 (117.93 kg, 182.88 cm) cz MDM: 05:25 IV Saline Lock ordered. mm11 05:25 Strep Screen, Nursing ordered. mm11 05:25 Ibuprofen 800 mg PO once ordered. mm11 05:25 NS 0.9% 1000 ml IV at bolus once ordered. mm11 05:25 -Blood Culture (Adults Only), peripheral from different site, or from device/port/PICC mm11 etc. if present ordered. 05:26 CBC with Diff Ordered. EDMS 05:26 BMP Ordered. EDMS 05:26 -Influenza A&B Rapid Antigen - Nose Ordered. EDMS 05:27 -Blood Culture Ordered. EDMS 05:29 Acetaminophen Tablet 650 mg PO once ordered. mm11 05:29 -Blood Culture (Adults Only), peripheral from different site, or from device/port/PICC ml3 etc. if present complete. 05:31 BLOOD CULTURES Ordered. EDMS 05:51 GATS (NEGATIVE STREP SCREEN) Ordered. EDMS 06:49 [facility] Payment Agreement was scanned into [employer] and attached to record. pm4 07:06 Financial registration complete. pm4 07:40 ketorolac 15 mg IVP once ordered. fg 07:41 Chest, 2 View (pa\E\lat) Ordered. EDMS 07:41 CT Chest Angio R/O PE Ordered. EDMS 07:41 Misc Production Consultant Order ordered. fg 07:45 Misc Production Consultant Order complete. ar3 08:12 RESPIRATORY PANEL Ordered. EDMS 17:23 T-Sheet-- Draft Copy was scanned into [employer] and attached to record. klr Administered Medications: 05:29 Not Given (Patient Refused): Ibuprofen 800 mg PO once jul 05:52 Drug: NS 0.9% 1000 ml [sodium chloride 0.9 % intravenous solution] Route: IV; Rate: mlc bolus; Site: right antecubital; 05:52 Drug: Acetaminophen 650 mg [acetaminophen 325 mg tablet (2 tabs)] Route: PO; mlc 07:10 Follow up: Response: Temperature is decreased pml 08:14 Drug: ketorolac 15 mg [ketorolac 30 mg/mL (1 mL) injection solution (0.5 mL)] Route: pml IVP; Site: right antecubital; 08:28 Follow up: Pain 5/10 Adult; Response: Pain is decreased pml 10:14 Follow up: Pain 4/10 Adult; Response: Pain is decreased js13 Signatures: Dispatcher [employer] EDMS Devaughn Bueno RN RN Juanpablo Gifford, Director Of Software Development Unit ml3 Kristine Solitario,RN RN kr3 Kayode Alcaraz, DO mm11 Nathalie Reyes, SALES CONTRACTOR SALES CONTRACTOR ar3 Ariana Ash,RN RN Arlene Palomares MD MD fg Redder, Kathie klr Montondo, Paul, Reg Reg pm4 Gypsy Pa RN, Paulina RN pml Sullivan, Jennifer RN js13 The chart was reviewed and I authenticate all verbal orders and agree with the evaluation and treatment provided.Corrections: (The following items were deleted from the chart) 08:12 07:46 RESPIRATORY PANEL ordered. EDMS EDMS Attachments: 06:49 [facility] Payment Agreement pm4 17:23 T-Sheet-- Draft Copy klr Chart Complete MTDD
== END 2016-09-14 10:49 | disposition home or self-care (01) ==
LOC: M ED 03:27
DX: J11.1 Influenza due to unidentified influenza virus with other respiratory manifestations (principal); I10 Essential (primary) hypertension; E11.9 Type 2 diabetes mellitus without complications; E78.5 Hyperlipidemia, unspecified; Z79.899 Other long term (current) drug therapy; Z79.84 Long term (current) use of oral hypoglycemic drugs
CPT/HCPCS: 36415; 71020; 71275; 80048; 85025; 87040; 87486; 87581; 87633; 87798; 87804; 87880; 96374; 99284; J1885; Q9967

== ENCOUNTER → 2017-01-15 | Day surgery (SDC) | payer BC ==
[~2017-01-15] VITALS: Ht 182.9 cm; Wt 113.4 kg
[~2017-01-15] MED LIST: AMLO5TAB2 PO; ATOR1TAB19 PO; BUPIVACAINE/EPIN 0.5% 30 ML VIAL As Ordered ONE; HYDROmorphone HCL 2 MG/ML 1ML VIAL (J1170) As Ordered ONE; LABETALOL HCL 100 MG/20 ML VIAL As Ordered ONE; LIDOCAINE 2% INJ 100 MG/5 ML SDV (FOR ANES.) As Ordered ONE; LIDOCAINE W/EPINEPHRINE 1% 20ML VIAL As Ordered ONE; LOSA100T36 PO; LR 1,000 ML IV ONE; LR 1,000 ML IV SCH; METF500T PO; METOCLOPRAMIDE INJ 10MG/2ML VIAL (J2765) As Ordered ONE; METOCLOPRAMIDE INJ 10MG/2ML VIAL (J2765) IV PRN; MIDAZOLAM INJ 2 MG/2 ML VIAL (J2250) As Ordered ONE; MORPHINE 10 MG/ML 1ML VIAL IV PRN; OMEP20CA3 PO; ONDANSETRON 4MG/2ML VIAL (J2405) As Ordered ONE; PERCOCET 5MG/325MG TAB PO PRN; PROPOFOL 200 MG/20 ML VIAL As Ordered ONE; dexameTHASONE 4 MG/ML 1ML VIAL (J1100) As Ordered ONE; fentaNYL 100 MCG/2 ML INJECTION (J3010) As Ordered ONE; fentaNYL 100 MCG/2 ML INJECTION (J3010) IV PRN
[2017-01-15] MEDS: ONDANSETRON 4MG/2ML VIAL (J2405) IV PRN ×2 (16:15→16:52)
[2017-01-15 19:04] VITALS: BP 118/68
--- NOTE | 2017-01-16 07:26 | RO ---
DATE OF PROCEDURE: 01/15/2017 PREPROCEDURE DIAGNOSIS: Chronic tonsillitis. POSTPROCEDURE DIAGNOSIS: Chronic tonsillitis. PROCEDURE: Tonsillectomy. SURGEON: Dr. Rebel Gallagher CHLORINE CELL TENDER: ANESTHESIA: ESTIMATED BLOOD LOSS: DESCRIPTION OF OPERATION: Under general anesthesia with the patient intubated, Fernandez-Baron mouth gag was inserted, the tonsil area was infiltrated with lidocaine and epinephrine and Marcaine. Using a Coblator with setting of 6 and 4, the tonsil was dissected free from its bed on both sides. The base and apex and other areas were cauterized with a setting of 4 on the Coblator. Minimal blood loss. The patient tolerated the procedure well. A nasogastric tube was passed to suction air from the esophagus. The patient was extubated and transferred to the recovery room in excellent condition.
== END | disposition home or self-care (01) ==
LOC: M SDC 10:55
PROVIDERS: ATTEND Otolaryngology
DX: J35.01 Chronic tonsillitis (principal); K21.9 Gastro-esophageal reflux disease without esophagitis; I10 Essential (primary) hypertension; E78.00 Pure hypercholesterolemia, unspecified; E11.9 Type 2 diabetes mellitus without complications; G47.33 Obstructive sleep apnea (adult) (pediatric); E78.5 Hyperlipidemia, unspecified; M25.50 Pain in unspecified joint; R06.83 Snoring; Z79.899 Other long term (current) drug therapy; Z79.84 Long term (current) use of oral hypoglycemic drugs; Z87.01 Personal history of pneumonia (recurrent)
CPT/HCPCS: 42826; 88302; J1100; J1170; J2250; J2405; J2765; J3010

== ENCOUNTER → 2020-06-25 | Outpatient (CLI) | payer BC ==
[~2020-06-25] MED LIST changes: +AMLO1TAB24 PO; -AMLO5TAB2 PO; -BUPIVACAINE/EPIN 0.5% 30 ML VIAL As Ordered ONE; -HYDROmorphone HCL 2 MG/ML 1ML VIAL (J1170) As Ordered ONE; -LABETALOL HCL 100 MG/20 ML VIAL As Ordered ONE; -LIDOCAINE 2% INJ 100 MG/5 ML SDV (FOR ANES.) As Ordered ONE; -LIDOCAINE W/EPINEPHRINE 1% 20ML VIAL As Ordered ONE; -LOSA100T36 PO; +LOSA100T50 PO; -LR 1,000 ML IV ONE; -LR 1,000 ML IV SCH; -METF500T PO; +METF500T13 PO; -METOCLOPRAMIDE INJ 10MG/2ML VIAL (J2765) As Ordered ONE; -METOCLOPRAMIDE INJ 10MG/2ML VIAL (J2765) IV PRN; -MIDAZOLAM INJ 2 MG/2 ML VIAL (J2250) As Ordered ONE; -MORPHINE 10 MG/ML 1ML VIAL IV PRN; +OMEP1CAP73 PO; -OMEP20CA3 PO; -ONDANSETRON 4MG/2ML VIAL (J2405) As Ordered ONE; -PERCOCET 5MG/325MG TAB PO PRN; -PROPOFOL 200 MG/20 ML VIAL As Ordered ONE; -dexameTHASONE 4 MG/ML 1ML VIAL (J1100) As Ordered ONE; -fentaNYL 100 MCG/2 ML INJECTION (J3010) As Ordered ONE; -fentaNYL 100 MCG/2 ML INJECTION (J3010) IV PRN
--- NOTE | 2020-06-25 09:18 | REP ---
INDICATION: ABNORMAL RESULTS OF LIVER FUNCTION STUDIES COMPARISON: None. TECHNIQUE: Real time butcher scale ultrasound examination using curved array transducer. FINDINGS: Liver is hyperechoic and consistent with fatty infiltration. No focal hepatic lesion identified. Evidence for prior cholecystectomy. No biliary ductal dilatation is appreciated and the common bile duct measures 5.8 mm diameter. The pancreas is incompletely evaluated due to interposed bowel gas but visualized portions appear normal. Right kidney is normal in reniform shape without hydronephrosis and measures 12.1 x 5.6 x 5.7 cm. No ascites in the visualized right upper quadrant. IMPRESSION: Hepatosteatosis. <Electronically signed by Marcus Su > 06/25/20 0919
== END ==
LOC: M RAD 08:34
PROVIDERS: ATTEND Nurse Practitioner
DX: R94.5 Abnormal results of liver function studies (principal); R19.7 Diarrhea, unspecified; K21.9 Gastro-esophageal reflux disease without esophagitis; A04.9 Bacterial intestinal infection, unspecified

== ENCOUNTER 2022-02-08 08:29 | Emergency (ER) | payer BC ==
[~2022-02-08] VITALS: Ht 182.9 cm; Wt 108.8 kg
[~2022-02-08 08:29] MED LIST changes: +LOSA100T45 PO; -LOSA100T50 PO
[2022-02-08 08:31] VITALS: BP 184/111
[2022-02-08] MEDS ORDERED: HYOS0.374 (08:54)
[2022-02-08] MEDS ORDERED: MESA1.2T (08:54)
[2022-02-08] MEDS ORDERED: VANC250C3 (08:54)
== END 2022-02-08 11:04 | disposition left against medical advice (07) ==
LOC: M ED 08:29
DX: Z53.21 Procedure and treatment not carried out due to patient leaving prior to being seen by health care provider (principal)

== ENCOUNTER → 2022-05-27 | Outpatient (CLI) | payer BC ==
[~2022-05-27] MED LIST changes: +HYOS0.374; +MESA1.2T; +VANC250C3
== END ==
LOC: M WHC 07:36
PROVIDERS: ATTEND Internal Medicine
DX: N45.2 Orchitis (principal)

== ENCOUNTER 2022-12-11 23:03 | Emergency (ER) | payer BC ==
[~2022-12-11] VITALS: Ht 182.9 cm; Wt 102.8 kg
[~2022-12-11 23:03] MED LIST changes: -LOSA100T45 PO; +LOSA100T46 PO
[2022-12-11] MEDS ORDERED: FARX1TAB3 (23:15)
[2022-12-11] MEDS ORDERED: LOSA50TA28 PO (23:15)
[2022-12-11] MEDS ORDERED: ASPI81TA26 PO (23:15)
[2022-12-11] MEDS ORDERED: METF850T4 (23:15)
[2022-12-11] MEDS ORDERED: TAMS1CAP17 (23:15)
[2022-12-11] MEDS ORDERED: ROSU10TA6 (23:15)
[2022-12-11 23:35] LABS: BASO % 0.3 % (0.0-1.0); EOS # 0.1 10^3/uL (0.0-0.5); EOS % 1.1 % (0.0-3.0); HEMATOCRIT 53.2 % (42.0-52.0); HEMOGLOBIN 18.8 g/dl (13.5-17.5); LYMPH # 1.2 10^3/uL (1.5-5.0); LYMPH % 13.4 % (24.0-44.0); MEAN CORPUSCULAR HEMOGLOBIN 31.8 pg (27.0-33.0); MEAN CORPUSCULAR HGB CONC 35.3 g/dl (32.0-36.5); MONO # 0.8 10^3/uL (0.0-0.8); MONO % 9.1 % (2.0-8.0); NEUTROPHILS # 6.9 10^3/uL (1.5-8.5); NEUTROPHILS % 75.7 % (36.0-66.0); PLATELET COUNT, AUTOMATED 151 10^3/uL (150-450); RED BLOOD COUNT 5.91 10^6/uL (4.30-6.10); WHITE BLOOD COUNT 9.1 10^3/uL (4.0-10.0)
[2022-12-12 00:11] LABS: BLOOD UREA NITROGEN 17 MG/DL (9-23); CALCIUM LEVEL 9.2 MG/DL (8.5-10.1); CARBON DIOXIDE LEVEL 22 MMOL/L (20-31); CHLORIDE LEVEL 103 MMOL/L (98-107); CREATININE FOR GFR 0.86 MG/DL (0.70-1.30); GLOMERULAR FILTRATION RATE > 60.0 (>56); GLUCOSE, FASTING 137 MG/DL (60-100); POTASSIUM SERUM 4.1 MMOL/L (3.5-5.1); SODIUM LEVEL 135 MMOL/L (136-145)
[2022-12-12] MEDS ORDERED: ONDANSETRON 4MG 2ML VIAL IV ONE (00:40)
[2022-12-12] MEDS ORDERED: NS 1,000 ML IV ONE ×2 (00:40→01:45)
[2022-12-12] MEDS ORDERED: ISOVUE-370 76% 100ML VIAL As Ordered ONE (00:42)
[2022-12-12 01:31] LABS: ALBUMIN 4.1 G/DL (3.2-5.2); BILIRUBIN,DIRECT 0.9 MG/DL (<0.4); BILIRUBIN,TOTAL 4.3 MG/DL (0.3-1.2); TOTAL PROTEIN 7.4 G/DL (5.7-8.2)
[2022-12-12] MEDS ORDERED: KETOROLAC 30 MG/ML 1ML VIAL IV ONE (02:00)
[2022-12-12] MEDS ORDERED: ONDA4TAB6 PO (02:38)
[2022-12-12] MEDS ORDERED: DICY20TA20 PO (02:38)
[2022-12-12] MEDS ORDERED: DICYCLOMINE 10 MG CAP PO ONE (02:45)
[2022-12-12] MEDS ORDERED: ONDANSETRON 4MG ORAL DISINTEGRATING TAB PO ONE (02:45)
[2022-12-12 03:00] VITALS: BP 114/58
[2022-12-13] MEDS ORDERED: PROB250C PO (07:49)
[2022-12-13] MEDS ORDERED: ACET-683 PO (07:49)
[2022-12-13] MEDS ORDERED: PROM25TA12 PO (10:41)
== END 2022-12-12 03:14 | disposition home or self-care (01) ==
LOC: M ED 23:03
DX: K52.9 Noninfective gastroenteritis and colitis, unspecified (principal); E86.0 Dehydration; Z90.49 Acquired absence of other specified parts of digestive tract; Z79.899 Other long term (current) drug therapy
CPT/HCPCS: 36415; 74177; 80048; 80076; 81001; 83690; 85025; 96361; 96374; 96375; 99284; J1885; J2405; Q9967

== ENCOUNTER 2022-12-13 05:46 | Emergency (ER) | payer BC ==
[~2022-12-13] VITALS: Ht 182.9 cm; Wt 102.5 kg
[~2022-12-13 05:46] MED LIST changes: +ASPI81TA26 PO; +DICY20TA20 PO; +FARX1TAB3; +LOSA50TA28 PO; +METF850T4; +ONDA4TAB6 PO; +ROSU10TA6; +TAMS1CAP17
[2022-12-13 06:24] LABS: BASO % 0.2 % (0.0-1.0); EOS # 0.1 10^3/uL (0.0-0.5); EOS % 1.1 % (0.0-3.0); HEMATOCRIT 51.8 % (42.0-52.0); HEMOGLOBIN 17.8 g/dl (13.5-17.5); LYMPH # 0.5 10^3/uL (1.5-5.0); LYMPH % 6.1 % (24.0-44.0); MEAN CORPUSCULAR HEMOGLOBIN 31.1 pg (27.0-33.0); MEAN CORPUSCULAR HGB CONC 34.4 g/dl (32.0-36.5); MEAN CORPUSCULAR VOLUME 90.6 fl (80.0-96.0); MONO # 0.5 10^3/uL (0.0-0.8); MONO % 5.5 % (2.0-8.0); NEUTROPHILS # 7.1 10^3/uL (1.5-8.5); NEUTROPHILS % 86.6 % (36.0-66.0); PLATELET COUNT, AUTOMATED 133 10^3/uL (150-450); RED BLOOD COUNT 5.72 10^6/uL (4.30-6.10); WHITE BLOOD COUNT 8.2 10^3/uL (4.0-10.0)
[2022-12-13 06:24] LABS: APPEARANCE, URINE CLEAR (CLEAR); BACTERIA, URINE AUTO NEGATIVE (NEGATIVE); BILIRUBIN, URINE AUTO NEGATIVE (NEGATIVE); BLOOD, URINE BLOOD NEGATIVE (NEGATIVE); COLOR, URINE YELLOW (YELLOW); GLUCOSE, URINE (UA) AUTO 3+ mg/dL (NEGATIVE); KETONE, URINE AUTO 2+ mg/dL (NEGATIVE); LEUKOCYTE ESTERASE, URINE AUTO NEGATIVE (NEGATIVE); MUCUS, URINE SMALL (NEGATIVE); NITRITE, URINE AUTO NEGATIVE (NEGATIVE); PROTEIN, URINE AUTO NEGATIVE (NEGATIVE); RBC, URINE AUTO 0 /HPF (0-3); SPECIFIC GRAVITY URINE AUTO 1.033 (1.002-1.035); SQUAMOUS EPITHELIAL CELL UR AU 0 /HPF (0-6); UROBILINOGEN, URINE AUTO 0.2 mg/dL (0.0-2.0); WBC, URINE AUTO 0 /HPF (0-3)
[2022-12-13 06:46] LABS: LIPASE 35 U/L (12-53)
[2022-12-13 06:48] LABS: ALBUMIN 3.9 G/DL (3.2-5.2); ALKALINE PHOSPHATASE 103 U/L (46-116); ALT/SGPT 141 U/L (7.0-40); AST/SGOT 144 U/L (<34); BILIRUBIN,DIRECT 1.1 MG/DL (<0.4); BILIRUBIN,TOTAL 3.3 MG/DL (0.3-1.2); BLOOD UREA NITROGEN 18 MG/DL (9-23); CARBON DIOXIDE LEVEL 23 MMOL/L (20-31); CHLORIDE LEVEL 105 MMOL/L (98-107); CREATININE FOR GFR 0.91 MG/DL (0.70-1.30); GLOMERULAR FILTRATION RATE > 60.0 (>56); GLUCOSE, FASTING 143 MG/DL (60-100); POTASSIUM SERUM 4.3 MMOL/L (3.5-5.1); SODIUM LEVEL 137 MMOL/L (136-145); TOTAL PROTEIN 7.1 G/DL (5.7-8.2)
[2022-12-13] MEDS ORDERED: NS 1,000 ML IV ONE (07:30)
[2022-12-13] MEDS ORDERED: PROB250C PO (07:49)
[2022-12-13] MEDS ORDERED: ACET-683 PO (07:49)
[2022-12-13] MEDS ORDERED: KETOROLAC 30 MG/ML 1ML VIAL IV ONE (08:05)
[2022-12-13] MEDS ORDERED: ONDANSETRON 4MG 2ML VIAL IV ONE (08:05)
[2022-12-13] MEDS ORDERED: PROM25TA12 PO (10:41)
[2022-12-13 10:51] VITALS: BP 112/61
== END 2022-12-13 11:01 | disposition home or self-care (01) ==
LOC: M ED 05:46
DX: A09 Infectious gastroenteritis and colitis, unspecified (principal); I10 Essential (primary) hypertension; K21.9 Gastro-esophageal reflux disease without esophagitis; Z79.82 Long term (current) use of aspirin; Z79.84 Long term (current) use of oral hypoglycemic drugs; Z79.899 Other long term (current) drug therapy
CPT/HCPCS: 80053; 81001; 82248; 83605; 83690; 85025; 87486; 87581; 87633; 87798; 96361; 96374; 96375; 99283; J1885; J2405

== ENCOUNTER → 2022-12-15 | Outpatient (REF) | payer BC ==
[~2022-12-15] MED LIST changes: +ACET-683 PO; +PROB250C PO; +PROM25TA12 PO
== END ==
LOC: M LAB REF 18:06
PROVIDERS: ATTEND Physician Assistant Medical
DX: R19.7 Diarrhea, unspecified (principal)

== ENCOUNTER → 2023-01-07 | Outpatient (CLI) | payer BC ==
[~2023-01-07] MED LIST changes: +ISOVUE-370 76% 100ML VIAL As Ordered ONE
== END ==
LOC: M RAD 14:23
PROVIDERS: ATTEND Physician Assistant
DX: N50.812 Left testicular pain (principal)

== ENCOUNTER → 2023-10-14 | Outpatient (REF) | payer BC ==
[~2023-10-14] MED LIST changes: -ISOVUE-370 76% 100ML VIAL As Ordered ONE
[2023-10-14 16:10] LABS: APPEARANCE, URINE CLEAR (CLEAR); BACTERIA, URINE AUTO NEGATIVE (NEGATIVE); BILIRUBIN, URINE AUTO NEGATIVE (NEGATIVE); BLOOD, URINE BLOOD NEGATIVE (NEGATIVE); COLOR, URINE YELLOW (YELLOW); GLUCOSE, URINE (UA) AUTO 1+ mg/dL (NEGATIVE); KETONE, URINE AUTO NEGATIVE (NEGATIVE); LEUKOCYTE ESTERASE, URINE AUTO NEGATIVE (NEGATIVE); MUCUS, URINE SMALL (NEGATIVE); NITRITE, URINE AUTO NEGATIVE (NEGATIVE); PROTEIN, URINE AUTO NEGATIVE (NEGATIVE); RBC, URINE AUTO 0 /HPF (0-3); SPECIFIC GRAVITY URINE AUTO 1.017 (1.002-1.035); SQUAMOUS EPITHELIAL CELL UR AU 0 /HPF (0-6); UROBILINOGEN, URINE AUTO 0.2 mg/dL (0.0-2.0); WBC, URINE AUTO 1 /HPF (0-3)
== END ==
LOC: M SMT 15:11
PROVIDERS: ATTEND Physician Assistant
DX: N48.1 Balanitis (principal)

== ENCOUNTER → 2023-10-19 | Outpatient (CLI) | payer BC ==
[~2023-10-19] MED LIST changes: +GASTROGRAFIN SOLUTION 30ML As Ordered ONE; +ISOVUE-370 76% 100ML VIAL As Ordered ONE
== END ==
LOC: M RAD 12:49
PROVIDERS: ATTEND Internal Medicine Gastroenterology
DX: K74.60 Unspecified cirrhosis of liver (principal); K75.81 Nonalcoholic steatohepatitis (NASH); R19.7 Diarrhea, unspecified; R10.32 Left lower quadrant pain; R14.1 Gas pain; I85.00 Esophageal varices without bleeding; R16.0 Hepatomegaly, not elsewhere classified; Z90.49 Acquired absence of other specified parts of digestive tract; K57.90 Diverticulosis of intestine, part unspecified, without perforation or abscess without bleeding
CPT/HCPCS: 74177; Q9963; Q9967

== ENCOUNTER → 2023-11-27 | Outpatient (REF) | payer BC ==
[~2023-11-27] MED LIST changes: +CVS1CAP2 PO; -GASTROGRAFIN SOLUTION 30ML As Ordered ONE; -ISOVUE-370 76% 100ML VIAL As Ordered ONE; +META28.32 PO; +METF850T4 PO; -ROSU10TA6; +ROSU10TA61; +ROSU10TA61 PO; +SEMA0.257 SQ; +ZONI25CA13 PO
[2023-11-27 15:58] LABS: APPEARANCE, URINE HAZY (CLEAR); BACTERIA, URINE AUTO NEGATIVE (NEGATIVE); BILIRUBIN, URINE AUTO NEGATIVE (NEGATIVE); BLOOD, URINE BLOOD NEGATIVE (NEGATIVE); COLOR, URINE YELLOW (YELLOW); GLUCOSE, URINE (UA) AUTO NEGATIVE (NEGATIVE); KETONE, URINE AUTO NEGATIVE (NEGATIVE); LEUKOCYTE ESTERASE, URINE AUTO NEGATIVE (NEGATIVE); MUCUS, URINE LARGE (NEGATIVE); NITRITE, URINE AUTO NEGATIVE (NEGATIVE); PROTEIN, URINE AUTO 1+ mg/dL (NEGATIVE); RBC, URINE AUTO 1 /HPF (0-3); SQUAMOUS EPITHELIAL CELL UR AU 0 /HPF (0-6); WBC, URINE AUTO 2 /HPF (0-3)
== END ==
LOC: M SMT 14:54
PROVIDERS: ATTEND Physician Assistant
DX: N48.1 Balanitis (principal)

== ENCOUNTER 2023-12-07 05:51 | Day surgery (SDC) | payer BC ==
[~2023-12-07] VITALS: Ht 182.9 cm; Wt 101.9 kg
[2023-12-07] MEDS ORDERED: LR 1,000 ML IV SCH (06:15)
[2023-12-07] MEDS: LIDOCAINE 1% SDV 30ML VIAL As Ordered ONE (07:13)
[2023-12-07] MEDS: BACITRACIN OINTMENT 30GM TUBE As Ordered ONE (07:13)
[2023-12-07] MEDS: SCOPOLAMINE 1MG TRANSDERMAL PATCH TOP ONE (07:23)
[2023-12-07] MEDS: ceFAZolin SOD 2 GM in IV 1 EA IV ONE (07:30)
[2023-12-07] MEDS ORDERED: LIDOCAINE 2% 100MG/5ML SDV (FOR ANES.) As Ordered ONE (07:52)
[2023-12-07] MEDS ORDERED: fentaNYL 100 MCG/2 ML INJECTION As Ordered ONE (07:52)
[2023-12-07] MEDS ORDERED: ROCURONIUM BROMIDE 50MG/5ML VIAL As Ordered ONE (07:52)
[2023-12-07] MEDS ORDERED: propofoL 200 MG/20 ML VIAL As Ordered ONE (07:52)
[2023-12-07] MEDS ORDERED: METOCLOPRAMIDE INJ 10MG/2ML VIAL As Ordered ONE (07:52)
[2023-12-07] MEDS ORDERED: SUGAMMADEX SODIUM 500 MG/5 ML VIAL (BRIDION) As Ordered ONE (07:52)
[2023-12-07] MEDS ORDERED: ACETAMINOPHEN 1000MG 100ML IV BAG As Ordered ONE (07:52)
[2023-12-07] MEDS ORDERED: ONDANSETRON 4MG 2ML VIAL As Ordered ONE (07:52)
[2023-12-07] MEDS ORDERED: dexmedeTOMIDine (4MCG/ML)200MCG/50ML BTL (PRECEDEX) As Ordered ONE (07:52)
[2023-12-07] MEDS ORDERED: MIDAZOLAM INJ 2MG/2ML VIAL As Ordered ONE (07:52)
[2023-12-07] MEDS: LR 1,000 ML IV SCH (08:20)
[2023-12-07] MEDS ORDERED: ONDANSETRON 4MG 2ML VIAL IV PRN (08:20)
[2023-12-07] MEDS ORDERED: HYDR-3713 PO (08:25)
[2023-12-07] MEDS ORDERED: CEPH500C PO (08:25)
[2023-12-07] MEDS: fentaNYL 100 MCG/2 ML INJECTION IV PRN (08:26)
[2023-12-07] MEDS: oxyCODONE 5MG TAB PO PRN (08:36)
[2023-12-07] MEDS: HYDROMORPHONE HCL 0.5 MG/ 0.5 ML SYRINGE IV PRN (08:37)
[2023-12-07 09:45] VITALS: BP 129/78; TEMP 97.5; O2SAT 98
== END 2023-12-07 10:00 | disposition home or self-care (01) ==
LOC: M SDC 05:51
PROVIDERS: ATTEND Urology
DX: N47.1 Phimosis (principal); E78.5 Hyperlipidemia, unspecified; E11.9 Type 2 diabetes mellitus without complications; I10 Essential (primary) hypertension; G47.33 Obstructive sleep apnea (adult) (pediatric); Z79.84 Long term (current) use of oral hypoglycemic drugs; K76.0 Fatty (change of) liver, not elsewhere classified; K21.9 Gastro-esophageal reflux disease without esophagitis; N18.9 Chronic kidney disease, unspecified; Z79.899 Other long term (current) drug therapy
CPT/HCPCS: 54161; 88304; J0131; J0690; J1100; J1170; J2250; J2405; J2765; J3010

== ENCOUNTER → 2024-04-15 | Outpatient (CLI) | payer BC ==
[~2024-04-15] MED LIST changes: +CEPH500C PO; +HYDR-3713 PO; +ONDA-282 PO; -ONDA4TAB6 PO
== END ==
LOC: M RAD 07:28
PROVIDERS: ATTEND Internal Medicine Gastroenterology
DX: K74.60 Unspecified cirrhosis of liver (principal); K75.81 Nonalcoholic steatohepatitis (NASH); R10.9 Unspecified abdominal pain

== ENCOUNTER → 2024-04-19 | Outpatient (CLI) | payer BC | LOC: M RAD 08:14 | PROVIDERS: ATTEND Internal Medicine Gastroenterology | DX: R68.81 Early satiety (principal); K74.60 Unspecified cirrhosis of liver; K57.90 Diverticulosis of intestine, part unspecified, without perforation or abscess without bleeding; K59.00 Constipation, unspecified; R14.1 Gas pain; R10.12 Left upper quadrant pain | CPT/HCPCS: 78264; A9541 ==

== ENCOUNTER → 2024-10-19 | Outpatient (CLI) | payer BC ==
[~2024-10-19] MED LIST changes: +HYOS0.3723; -HYOS0.374; +ISOVUE-370 76% 100ML VIAL As Ordered ONE; +VANC250C12; -VANC250C3
== END ==
LOC: M RAD 08:39
PROVIDERS: ATTEND Internal Medicine Gastroenterology
DX: K74.60 Unspecified cirrhosis of liver (principal); L29.9 Pruritus, unspecified; K76.0 Fatty (change of) liver, not elsewhere classified; R16.1 Splenomegaly, not elsewhere classified
CPT/HCPCS: 74177; Q9967

== ENCOUNTER → 2025-05-22 | Outpatient (CLI) | payer BC ==
[~2025-05-22] MED LIST changes: -ISOVUE-370 76% 100ML VIAL As Ordered ONE; -ROSU10TA61; -ROSU10TA61 PO; +ROSU10TA90; +ROSU10TA90 PO
== END ==
LOC: M RAD 07:50
PROVIDERS: ATTEND Internal Medicine Gastroenterology
DX: K74.60 Unspecified cirrhosis of liver (principal); K59.00 Constipation, unspecified; K21.9 Gastro-esophageal reflux disease without esophagitis; K44.9 Diaphragmatic hernia without obstruction or gangrene; R19.7 Diarrhea, unspecified; Z90.49 Acquired absence of other specified parts of digestive tract